=== PATIENT | female | born 1950 | race Caucasian/White ===

== ENCOUNTER 2016-12-17 06:56 | Day surgery (SDC) | payer MEDICARE, OTHER ==
--- NOTE | ~2016-12-17 | EGD ---
EGD REPORT [facility] [address] [place] [id number] NAME: PAYTON SMITH : [birth year] STATUS : REG [facility]#: [id number] AGE: 66 ADM/REG DATE : 12/17/16 MR#: [id number] REPORT SERV DATE: 12/17/16 DICTATED BY: MICHOACANO TABARES DATE: 12/17/16 REPORT STATUS : Draft TRANSCRIBED BY: [facility] DATE: 12/17/16 Endoscopy Center Patient Name: Payton Smith Date of : 1950 Attending MD: MICHOACANO TABARES MD Procedure Date No Time: 12/17/2016 Procedure: Colonoscopy Indications: High risk colon cancer surveillance: Personal history of non-advanced adenoma last exam 2011. Patient Profile: Informed consent was obtained from the patient by me prior to the procedure. Risks, benefits, and alternatives were discussed including the risk of bleeding, perforation, infection, reaction to medicine, missed lesion, and cardiopulmonary complications. Referring MD: OPHELIA ROSE Medicines: Monitored Anesthesia Care Complications: No immediate complications. Procedure: Pre-Anesthesia Assessment: - ASA Grade Assessment: III - A patient with severe systemic disease. After I obtained informed consent, the scope was passed under direct vision. Throughout the procedure, the patient's blood pressure, pulse, and oxygen saturations were monitored continuously. The CF [id number] was introduced through the anus and advanced to the cecum, identified by appendiceal orifice and ileocecal valve. The colonoscope was slowly withdrawn with careful examination all mucosal surfaces including specific attention around flexures and tip deflection behind folds; retroflexion performed in rectum. The colonoscopy was performed without difficulty. The patient tolerated the procedure well. The quality of the bowel preparation was adequate. The ileocecal valve, appendiceal orifice and rectum were photographed. Findings: The colon (entire examined portion) appeared normal. Multiple medium-mouthed diverticula were found in the sigmoid colon, in the descending colon and at the hepatic flexure. Impression: - The entire examined colon is normal. - Diverticulosis in the sigmoid colon, in the descending colon and at the hepatic flexure. Recommendation: - Patient has a contact number available for EGD REPORT [address] [address] NAME: PAYTON SMITH : [birth year] STATUS : REG [facility] PAT#: [id number] AGE: 66 ADM/REG DATE : 12/17/16 MR#: [id number] REPORT SERV DATE: 12/17/16 DICTATED BY: MICHOACANO TABARES DATE: 12/17/16 REPORT STATUS : Draft TRANSCRIBED BY: [employer] DATE: 12/17/16 emergencies. The signs and symptoms of potential delayed complications were discussed with the patient. Return to normal activities tomorrow. Written discharge instructions were provided to the patient. - Regular diet. - Continue present medications. - Repeat colonoscopy in 5 years for surveillance. Procedure Code(s): --- Professional --- 47309, Colonoscopy, flexible, proximal to splenic flexure; diagnostic, with or without collection of specimen(s) by brushing or washing, with or without colon decompression (separate procedure) Diagnosis Code(s): --- Professional --- K57.30, Diverticulosis of large intestine without perforation or abscess without bleeding Z86.010, Personal history of colonic polyps CPT copyright 2013 [employer]. All rights reserved. The codes documented in this report are preliminary and upon security systems integrator review may be revised to meet current compliance requirements. MICHOACANO TABARES MD 12/17/2016 9:02 AM This report has been signed electronically. Number of Addenda: 0 Note Initiated On: 12/17/2016 8:38 AM Scope Withdrawal Time 0 hours 8 minutes 44 seconds [address] [place] [id number]
[~2016-12-17 06:56] MED LIST: ASAB PO; B COMPLETE PO; CALCIUM, MAG, ZINC PO; CALTRA600D PO; CLARIT10 PO; FISH-EPA1000 MG PO; FLONASE NAS; FORTAMET1000 MG PO; HYZAAR 100/25 T1 TAB PO; LEVOTHYROXIN125 MCG PO; MULTIVIT/MIN PO; NORV10 PO; Nature-Throid PO; PEPCID40 MG PO; PRILOSEC40 MG PO; PRIM50B PO; PROBIOTICS PO; SINGULAIR1 PO; SYMBICORT 160/41 INH INH; VENTOLIN HFA INH; VITAMIN B-121000 MC1 SL; VITE PO; ZIAC10 PO
== END 2016-12-17 23:59 | disposition home or self-care (01) ==
LOC: DMU 06:56
PROVIDERS: Internal Medicine Gastroenterology
PROC: 0DJD8ZZ Inspection of Lower Intestinal Tract, Via Natural or Artificial Opening Endoscopic (ICD-10-PCS; principal; 2016-12-17 08:30)
DX: Z12.11 Encounter for screening for malignant neoplasm of colon (principal); K57.30 Diverticulosis of large intestine without perforation or abscess without bleeding; E66.01 Morbid (severe) obesity due to excess calories; I10 Essential (primary) hypertension; E11.9 Type 2 diabetes mellitus without complications; J45.909 Unspecified asthma, uncomplicated; Z86.010 Personal history of colon polyps; Z90.49 Acquired absence of other specified parts of digestive tract; Z98.51 Tubal ligation status; Z98.890 Other specified postprocedural states
CPT/HCPCS: 82962